=== PATIENT | male | born 1985 | race Caucasian/White ===

== ENCOUNTER 2019-05-18 12:50 | Emergency (ER) | payer SELFPAY ==
[2019-05-18 13:15] VITALS: BP 122/82
--- NOTE | 2019-05-18 13:42 | UC ---
Complaint Male HPI - HPI Summary HPI Summary: 3 DAYS OF PAINFUL SWOLLEN RIGHT INGUINAL LYMPH NODES. NO URINARY SYMPTOMS. DENIES ANY RASHES OR LESIONS IN THE GENITAL AREA. NO FEVER. NO CONCERNS FOR STDS. IS CONCERNED THAT HE MIGHT HAVE LYME DISEASE HIS DOG WAS RECENTLY DIAGNOSED WITH LYME AND HE HAS HAD SEVERAL MONTHS OF GENERALIZED ACHES AND PAINS. ALSO WORRIED ABOUT LEFT HAND WEAKNESS HE HAS HAD FOR MONTHS SINCE FALLING AND LANDING ON THIS HAND. - History of Current Complaint Chief Complaint: UCAbdominalPain Stated Complaint: ACHES AND PAINS Time Seen by Provider: 05/18/19 13:02 Hx Obtained From: Patient Onset/Duration: Gradual Onset, Lasting Days, Still Present Timing: Constant Severity Initially: Moderate Severity Currently: Moderate Pain Intensity: 7 Pain Scale Used: 0-10 Numeric Location: Groin Aggravating Factor(s): Palpation Alleviating Factor(s): Nothing Associated Signs And Symptoms: Positive: Back Pain. Negative: Hematuria, Dysuria, Nausea, Penile Swelling, Penile Discharge - Allergies/Home Medications Allergies/Adverse Reactions: Allergies Allergy/AdvReac Type Severity Reaction Status Date / Time nicotine Allergy Shortness Verified 05/18/19 13:08 of Breath red dye Allergy Swelling Verified 05/18/19 13:08 Of Face,Lips,& Throat Home Medications: Home Medications NK [No Home Medications Reported] 05/18/19 [History Confirmed 05/18/19] PMH/Surg Hx/FS Hx/Imm Hx Previously Healthy: Yes - Surgical History Surgical History: None - Family History Known Family History: Positive: Non-Contributory - Social History Alcohol Use: Daily Substance Use Type: None Smoking Status (MU): Never Smoked Tobacco Review of Systems All Other Systems Reviewed And Are Negative: Yes Constitutional: Positive: Fatigue Respiratory: Positive: Negative Cardiovascular: Positive: Negative Gastrointestinal: Positive: Negative Genitourinary: Positive: Other - RIGHT INGUINAL LAD. Negative: Dysuria, Hematuria, Frequency, Urgency Physical Exam Triage Information Reviewed: Yes Appearance: Well-Appearing, No Pain Distress, Well-Nourished Vital Signs: Initial Vital Signs Temp 98.4 F 05/18/19 13:09 Pulse 77 05/18/19 13:09 Resp 16 05/18/19 13:09 BP 122/82 05/18/19 13:09 Pulse Ox 100 05/18/19 13:09 Vital Signs Reviewed: Yes Eyes: Positive: Conjunctiva Clear ENT: Positive: Hearing grossly normal Neck: Positive: Supple, Nontender, No Lymphadenopathy, Other: - NON TENDER, SOFT MASS RIGHT NECK (CHRONIC SEBACEOUS CYST) Respiratory Exam: Normal Cardiovascular Exam: Normal Abdomen Description: Positive: Nontender, Soft, CVA Tenderness (R). Negative: CVA Tenderness (L), Distended, Guarding Bowel Sounds: Positive: Present Musculoskeletal: Positive: No Edema Neurological: Positive: Alert, Other: - HAT TRIMMER STRENGTH LEFT HAND 4/5 Psychological: Positive: Age Appropriate Behavior Skin: Positive: Other - MILDLY TENDER INGUINAL LAD (RIGHT > LEFT). Negative: Rashes Diagnostics - Radiology CT ABD/PELVIS W/O CONTRAST Radiology Interpretation Completed By: Radiologist Summary of Radiographic Findings: 1. NO EVIDENCE FOR RENAL, URETERAL CALCULI OR HYDRONEPHROSIS. 2. HEPATOMEGALY AND HEPATIC STEATOSIS. Complaint Male Course/Dx - Course Course Of Treatment: CT SCAN TODAY DOES NOT SHOW ANY EXPLANATION FOR PATIENT'S DISCOMFORT. GIVEN HIS LYMPHADENOPATHY WILL CHECK CBC AND CMP. GIVEN PATIENTS REPORT OF TICK BITES AND LYME DISEASE IN HIS DOGS WILL CHECK LYME SEROLOGY TODAY. ADVISED TO GO TO THE ER WITHOUT FAIL IF HIS SYMPTOMS WORSEN. PATIENT WILL FOLLOW-UP WITH A PCP FOR FURTHER EVALUATION OF HIS SYMPTOMS. HAVE ALSO REFERRED TO NEUROLOGY FOR HIS LEFT HAND WEAKNE ss. - Differential Dx/Diagnosis Provider Diagnosis: Inguinal lymphadenopathy, Left hand weakness Discharge ED - Sign-Out/Discharge Documenting (check all that apply): Patient Departure All imaging exams completed and their final reports reviewed: Yes - Discharge Plan Condition: Stable Disposition: HOME Patient Education Materials: Lymphadenopathy (ED) Referrals: [facility] [Outside] - If Needed Olimpia Putnam MD [Medical Doctor] - 2 Weeks Additional Instructions: CT SCAN OF THE ABDOMEN AND PELVIS TODAY DOES NOT SHOW ANY REASON FOR YOUR DISCOMFORT. GIVEN YOUR RIGHT INGUINAL LYMPHADENOPATHY WILL GO AHEAD AND CHECK BASIC LABS INCLUDING BLOOD COUNT AND METABOLIC PANEL. WILL ALSO CHECK LYME SEROLOGY TODAY. WE WILL CALL YOU WITH ANY ABNORMAL RESULTS. I STRONGLY RECOMMEND YOU ESTABLISH CARE WITH A PRIMARY CARE PHYSICIAN FOR FOLLOW-UP CARE. GO TO THE ER WITHOUT FAIL IF YOU DEVELOP WORSENING PAIN, FEVER, NAUSEA/VOMITING OR ANY OTHER CONCERNING SYMPTOMS. CALL THE NUMBER BELOW FOR ASSISTANCE IN ESTABLISHING WITH A PCP An additional resource available to assist in finding the appropriate physician for your health care needs is the [facility] ([facility]). You may contact them by calling [phone]. CALL NEUROLOGY FOR FOLLOW-UP OF YOUR LEFT HAND WEAKNESS. - Billing Disposition and Condition Condition: STABLE Disposition: Home
[2019-05-18 17:20] LABS: HIV 4th Generation Nonreactive (Nonreactive)
[2019-05-18 18:53] LABS: ABS Eosinophils 0.1 10^3/ul (0-0.6); ABS Lymphocytes 2.2 10^3/ul (1.0-4.8); ABS Monocytes 0.5 10^3/ul (0-0.8); ABS Neutrophils 5.7 10^3/ul (1.5-7.7); Eosinophil % 1.1 %; Hematocrit 43 % (42-52); Hemoglobin 15.1 g/dL (14.0-18.0); Lymphocyte % 25.7 %; Mean Corpuscular HGB Conc 35 g/dL (31-36); Mean Corpuscular Hemoglobin 30 pg (27-31); Mean Corpuscular Volume 86 fL (80-94); Mean Platelet Volume 8.2 fL (7.4-10.4); Platelet Count 309 10^3/uL (150-450); Red Blood Count 4.98 10^6 /uL (4.18-5.48); Red Cell Distribution Width 14 % (10-15); White Blood Count 8.6 10^3/uL (3.5-10.8)
[2019-05-18 19:01] LABS: Albumin 4.6 g/dL (3.2-5.2); Calcium 9.6 mg/dL (8.6-10.3); Potassium 4.3 mmol/L (3.5-5.0); Total Bilirubin 0.3 mg/dL (0.2-1.0)
[2019-05-18 19:07] LABS: BUN/Creatinine Ratio 21.8 (8-20); EGFR African American 121.5 (>60); EGFR Non-African American 100.4 (>60); Globulin 2.3 g/dL (2-4); Total Protein 6.9 g/dL (6.4-8.9)
--- NOTE | 2019-05-19 15:33 | UC ---
- Progress Note Progress Note: Lyme Screen (+) awaiting WB Course/Dx - Diagnoses Provider Diagnoses: Inguinal lymphadenopathy, Left hand weakness Discharge ED - Sign-Out/Discharge Documenting (check all that apply): Post-Discharge Follow Up All imaging exams completed and their final reports reviewed: Yes - Discharge Plan Condition: Stable Disposition: HOME Patient Education Materials: Lymphadenopathy (ED) Referrals: [facility] [Outside] - If Needed Olimpia Putnam MD [Medical Doctor] - 2 Weeks Additional Instructions: CT SCAN OF THE ABDOMEN AND PELVIS TODAY DOES NOT SHOW ANY REASON FOR YOUR DISCOMFORT. GIVEN YOUR RIGHT INGUINAL LYMPHADENOPATHY WILL GO AHEAD AND CHECK BASIC LABS INCLUDING BLOOD COUNT AND METABOLIC PANEL. WILL ALSO CHECK LYME SEROLOGY TODAY. WE WILL CALL YOU WITH ANY ABNORMAL RESULTS. I STRONGLY RECOMMEND YOU ESTABLISH CARE WITH A PRIMARY CARE PHYSICIAN FOR FOLLOW-UP CARE. GO TO THE ER WITHOUT FAIL IF YOU DEVELOP WORSENING PAIN, FEVER, NAUSEA/VOMITING OR ANY OTHER CONCERNING SYMPTOMS. CALL THE NUMBER BELOW FOR ASSISTANCE IN ESTABLISHING WITH A PCP An additional resource available to assist in finding the appropriate physician for your health care needs is the [facility] ([facility]). You may contact them by calling [phone]. CALL NEUROLOGY FOR FOLLOW-UP OF YOUR LEFT HAND WEAKNESS. - Billing Disposition and Condition Condition: STABLE Disposition: Home
--- NOTE | 2019-05-20 13:07 | UC ---
- Progress Note Progress Note: May 20 2019 LYME SCREEN IgG IgM positive. Sent to reference lab. Call patient with result at this time. Needs to follow up with doctor for appropriate treatment. Jesse Ceja MD Course/Dx - Diagnoses Provider Diagnoses: Inguinal lymphadenopathy, Left hand weakness Discharge ED - Sign-Out/Discharge Documenting (check all that apply): Post-Discharge Follow Up All imaging exams completed and their final reports reviewed: Yes - Discharge Plan Condition: Stable Disposition: HOME Patient Education Materials: Lymphadenopathy (ED) Referrals: [facility] [Outside] - If Needed Olimpia Putnam MD [Medical Doctor] - 2 Weeks Additional Instructions: CT SCAN OF THE ABDOMEN AND PELVIS TODAY DOES NOT SHOW ANY REASON FOR YOUR DISCOMFORT. GIVEN YOUR RIGHT INGUINAL LYMPHADENOPATHY WILL GO AHEAD AND CHECK BASIC LABS INCLUDING BLOOD COUNT AND METABOLIC PANEL. WILL ALSO CHECK LYME SEROLOGY TODAY. WE WILL CALL YOU WITH ANY ABNORMAL RESULTS. I STRONGLY RECOMMEND YOU ESTABLISH CARE WITH A PRIMARY CARE PHYSICIAN FOR FOLLOW-UP CARE. GO TO THE ER WITHOUT FAIL IF YOU DEVELOP WORSENING PAIN, FEVER, NAUSEA/VOMITING OR ANY OTHER CONCERNING SYMPTOMS. CALL THE NUMBER BELOW FOR ASSISTANCE IN ESTABLISHING WITH A PCP An additional resource available to assist in finding the appropriate physician for your health care needs is the [facility] ([facility]). You may contact them by calling [phone]. CALL NEUROLOGY FOR FOLLOW-UP OF YOUR LEFT HAND WEAKNESS. - Billing Disposition and Condition Condition: STABLE Disposition: Home
== END 2019-05-18 15:16 | disposition home or self-care (01) ==
LOC: UCEAST 12:50
DX: R59.0 Localized enlarged lymph nodes (principal); M79.642 Pain in left hand
CPT/HCPCS: 36415; 74176; 80053; 81003; 85025; 86617; 86618; 87389; 99201; G0463

== ENCOUNTER 2019-05-22 21:42 | Emergency (ER) | payer SELFPAY ==
[2019-05-22 22:39] LABS: ABS Eosinophils 0.1 10^3/ul (0-0.6); ABS Monocytes 0.5 10^3/ul (0-0.8); ABS Neutrophils 3.7 10^3/ul (1.5-7.7); Eosinophil % 1.9 %; Hematocrit 44 % (42-52); Hemoglobin 15.3 g/dL (14.0-18.0); Lymphocyte % 40.2 %; Mean Corpuscular HGB Conc 35 g/dL (31-36); Mean Corpuscular Hemoglobin 31 pg (27-31); Mean Corpuscular Volume 87 fL (80-94); Mean Platelet Volume 7.3 fL (7.4-10.4); Nucleated Red Blood Cells % 0.2; Platelet Count 346 10^3/uL (150-450); Red Blood Count 5.03 10^6 /uL (4.18-5.48); Red Cell Distribution Width 14 % (10-15); White Blood Count 7.4 10^3/uL (3.5-10.8)
[2019-05-22 22:55] LABS: Albumin 4.5 g/dL (3.2-5.2); Albumin/Globulin Ratio 1.6 (1-3); BUN/Creatinine Ratio 19.6 (8-20); Calcium 8.9 mg/dL (8.6-10.3); EGFR African American 107.2 (>60); EGFR Non-African American 88.6 (>60); Globulin 2.8 g/dL (2-4); Potassium 3.6 mmol/L (3.5-5.0); Total Bilirubin 0.5 mg/dL (0.2-1.0); Total Protein 7.3 g/dL (6.4-8.9)
--- NOTE | 2019-05-23 00:24 | ED ---
Complex/Multi-Sys Presentation - HPI Summary HPI Summary: 34-year-old male presents with potential Lyme disease today. He states that he was worked up in urgent care for his flank pain a couple days ago. He states he feels very disoriented for the past 8 months. He states he was diagnosed with lyme but was not started on antibiotics. He states he had exposure to a tick 8 months ago and has been feeling off since. He admits to joint pain. Denies any urinary symptoms. Had a negative CT at urgent care. He denies any fevers. No headache. No change in vision. No chest pain or shortness of breath. Denies any other symptoms. No pain to legs. No numbness or tingling. No loss of bowel or bladder. No saddle anesthesia. nothing different for symptoms since was seen at urgent care. - History Of Current Complaint Chief Complaint: EDFlankPain Time Seen by Provider: 05/22/19 23:56 - Allergies/Home Medications Allergies/Adverse Reactions: Allergies Allergy/AdvReac Type Severity Reaction Status Date / Time nicotine Allergy Shortness Verified 05/22/19 21:51 of Breath red dye Allergy Swelling Verified 05/22/19 21:51 Of Face,Lips,& Throat PMH/Surg Hx/FS Hx/Imm Hx Endocrine/Hematology History: Denies: Hx Anticoagulant Therapy Respiratory History: Denies: Hx Asthma Infectious Disease History: No Infectious Disease History: Denies: Traveled Outside the [place] in Last 30 Days - Family History Known Family History: Positive: Non-Contributory - Social History Alcohol Use: Daily Substance Use Type: Reports: None Smoking Status (MU): Never Smoked Tobacco Review of Systems Negative: Fever Negative: Chest Pain Negative: Shortness Of Breath Positive: Myalgia - back pain Neurological: Other - disorientated Negative: Headache All Other Systems Reviewed And Are Negative: Yes Physical Exam Triage Information Reviewed: Yes Vital Signs On Initial Exam: Initial Vitals Temp Pulse Resp BP Pulse Ox 98.9 F 87 20 133/88 97 05/22/19 21:49 05/22/19 21:49 05/22/19 21:49 05/22/19 21:49 05/22/19 21:49 Vital Signs Reviewed: Yes Appearance: Positive: Well-Appearing Skin: Positive: Warm, Dry Head/Face: Positive: Normal Head/Face Inspection Eyes: Positive: Normal, EOMI, KEYUR, Conjunctiva Clear ENT: Positive: Normal ENT inspection, Pharynx normal, TMs normal Respiratory/Lung Sounds: Positive: Clear to Auscultation, Breath Sounds Present Cardiovascular: Positive: Normal, RRR Abdomen Description: Positive: Nontender, Soft. Negative: CVA Tenderness (R), CVA Tenderness (L) Bowel Sounds: Positive: Present Musculoskeletal: Positive: Strength/ROM Intact - back, Other - tenderness lower back, neg SLR, good pulses, sensation grossly intact Neurological: Positive: Sensory/Motor Intact, Alert, Oriented to Person Place, Time, CN Intact II-III, Finger to Nose Psychiatric: Positive: Normal Diagnostics - Vital Signs Vital Signs Temp Pulse Resp BP Pulse Ox 05/22/19 21:49 98.9 F 87 20 133/88 97 - Laboratory Lab Results: Lab Results 05/22/19 05/22/19 Range/Units 22:30 22:30 WBC 7.4 (3.5-10.8) 10^3/uL RBC 5.03 (4.18-5.48) 10^6 /uL Hgb 15.3 (14.0-18.0) g/dL Hct 44 (42-52) % MCV 87 (80-94) fL MCH 31 (27-31) pg MCHC 35 (31-36) g/dL RDW 14 (10-15) % Plt Count 346 (150-450) 10^3/uL MPV 7.3 L (7.4-10.4) fL Neut % (Auto) 50.4 % Lymph % (Auto) 40.2 % [place] % (Auto) 6.9 % Eos % (Auto) 1.9 % Baso % (Auto) 0.6 % Absolute Neuts (auto) 3.7 (1.5-7.7) 10^3/ul Absolute Lymphs (auto) 3.0 (1.0-4.8) 10^3/ul Absolute Monos (auto) 0.5 (0-0.8) 10^3/ul Absolute Eos (auto) 0.1 (0-0.6) 10^3/ul Absolute Basos (auto) 0.0 (0-0.2) 10^3/ul Absolute Nucleated RBC 0.0 10^3/ul Nucleated RBC % 0.2 Sodium 139 (135-145) mmol/L Potassium 3.6 (3.5-5.0) mmol/L Chloride 103 (101-111) mmol/L Carbon Dioxide 25 (22-32) mmol/L Anion Gap 11 (2-11) mmol/L BUN 19 (6-24) mg/dL Creatinine 0.97 (0.67-1.17) mg/dL Est GFR ( Amer) 107.2 (>60) Est GFR (Non-Af Amer) 88.6 (>60) BUN/Creatinine Ratio 19.6 (8-20) Glucose 117 H (70-100) mg/dL Calcium 8.9 (8.6-10.3) mg/dL Total Bilirubin 0.50 (0.2-1.0) mg/dL AST 22 (13-39) U/L ALT 18 (7-52) U/L Alkaline Phosphatase 73 (34-104) U/L Total Protein 7.3 (6.4-8.9) g/dL Albumin 4.5 (3.2-5.2) g/dL Globulin 2.8 (2-4) g/dL Albumin/Globulin Ratio 1.6 (1-3) Result Diagrams: 05/22/19 22:30 05/22/19 22:30 Lab Statement: Any lab studies that have been ordered have been reviewed, and results considered in the medical decision making process. Complex Multi-Symp Course/Dx Course Of Treatment: 34-year-old male presents with potential Lyme disease today. He states that he was worked up in urgent care for his flank pain a couple days ago. He states he feels very disoriented for the past 8 months. He states he was diagnosed with lyme but was not started on antibiotics. He states he had exposure to a tick 8 months ago and has been feeling off since. He admits to joint pain. Denies any urinary symptoms. Had a negative CT at urgent care. He denies any fevers. No headache. No change in vision. No chest pain or shortness of breath. Denies any other symptoms. No pain to legs. No numbness or tingling. No loss of bowel or bladder. No saddle anesthesia. nothing different for symptoms since was seen at urgent care. On exam nontender flanks. Has tenderness of lower back. White blood cell count normal. CRP normal. Lyme disease titer from couple days ago was positive. We' ll start on doxycycline. Told to establish care with Primary. Patient understands agrees with plan. - Diagnoses Differential Diagnoses/HQI/PQRI: Metabolic Abnormality, Sepsis, Urinary Tract Infection Provider Diagnoses: Back pain, Lyme disease Discharge ED - Sign-Out/Discharge Documenting (check all that apply): Patient Departure Patient Received Moderate/Deep Sedation with Procedure: No - Discharge Plan Condition: Good Disposition: HOME Prescriptions: DOXYcycline CAP(*) [DOXYcycline 100MG CAP(*)] 100 mg PO BID #41 cap Patient Education Materials: Lyme Disease (ED) Referrals: [facility] [Outside] Additional Instructions: Take antibiotic twice a day for 21 days, first dose given in ED Take with food, use sunscreen when go outside Establish care with primary care physician to follow up Return to ED if develop any new or worsening symptoms - Billing Disposition and Condition Condition: GOOD Disposition: Home
[2019-05-23] MEDS ORDERED: DOXYcycline CAP(*) 100 MG PO ONE (00:25)
[2019-05-23 00:36] VITALS: BP 116/75
== END 2019-05-23 00:25 | disposition home or self-care (01) ==
LOC: ED 21:42
DX: M54.5 Low back pain (principal); A69.20 Lyme disease, unspecified; R41.0 Disorientation, unspecified; Z91.048 Other nonmedicinal substance allergy status
CPT/HCPCS: 36415; 80053; 85025; 99283; A9270-GY